=== PATIENT | female | born 1985 | race Caucasian/White ===

== ENCOUNTER 2024-09-29 09:40 | Emergency (ER) | payer OTHER, SELFPAY ==
[2024-09-29 09:41] VITALS: BMI 24.2
--- NOTE | 2024-09-29 09:44 | EKG_ITS ---
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
[2024-09-29 10:09] VITALS: BP 114/68; PULSE 88; RESP 18; TEMP 36.9; O2SAT 99
--- NOTE | 2024-09-29 10:22 | XR_ITS ---
Examination: Venous duplex lower extremity sonogram, bilateral. Date and time of exam: September 29, 2024 1139 hours INDICATIONS: Bilateral leg swelling beginning one week ago Technique: Multiple sonographic images of the deep venous system have been obtained. B-mode/2-D grayscale imaging of vascular structures and Doppler spectral analysis (waveforms) and color performed Both legs are examined. Findings: Deep venous systems do not demonstrate abnormal echogenicity. All visualized deep veins exhibit compressibility. All visualized deep veins exhibit augmentation. Impression: Negative for deep vein thrombosis
--- NOTE | 2024-09-29 10:23 | XR_ITS ---
Examination: PA lateral chest 2 views TECHNIQUE: Upright PA lateral chest 2 views Date and time: September 29, 2024 10:20 AM Comparison November 17, 2016 INDICATIONS: Chest pain shortness of breath today. FINDINGS: Normal heart size Pectus excavatum deformity. No pneumonia or pulmonary edema IMPRESSION: No active disease.
[2024-09-29] MEDS: ASPIRIN EC 81 MG TABEC PO (10:36)
[2024-09-29 11:09] LABS: Basophils # (Auto) 0.1 Thou/mm3 (0.0-0.2); Basophils % (Auto) 1 % (0-2.5); Eosinophils # (Auto) 0.0 Thou/mm3 (0.0-0.5); Eosinophils % (Auto) 0 % (0-10); Hematocrit 40.3 % (36.0-46.0); Hemoglobin 13.4 g/dL (12.0-16.0); Immature Granulocytes Auto 0.03 Thou/mm3 (0.00-0.00); Lymphocytes # (Auto) 1.2 Thou/mm3 (1.0-4.8); Lymphocytes % (Auto) 13 % (10-50); Mean Corpuscular HGB Conc 33.3 g/dl (31.0-37.0); Mean Corpuscular Hemoglobin 29.7 pg (25.0-35.0); Mean Corpuscular Volume 89 fL (80-100); Monocytes # (Auto) 0.5 Thou/mm3 (0.0-0.8); Monocytes % (Auto) 6 % (0-12); Neutrophils # (Auto) 7.7 Thou/mm3 (1.8-7.7); Neutrophils % (Auto) 81 % (37-80); Nucleated Red Blood Cell # 0.00 Thou/mm3 (0.00-0.00); Nucleated Red Blood Cell % 0 /100 WBC (0); Platelet Count 280 Thou/mm3 (140-440); RDW Standard Deviation 44.4 fL (36.4-46.3); Red Blood Count 4.51 Miln/mm3 (4.00-5.20); White Blood Count 9.6 Thou/mm3 (3.6-11.0)
[2024-09-29 11:28] LABS: D-Dimer < 250 ng/mL (<600)
[2024-09-29 11:36] LABS: Alanine Aminotransferase 15 U/L (10-49); Albumin, Serum 4.5 gm/dL (3.5-5.0); Albumin/Globulin Ratio 2.0 (1.2-2.2); Alkaline Phosphatase 32 U/L (46-116); Anion Gap 9 (7-16); Aspartate Amino Transferase 23 U/L (0-34); BUN/Creatinine Ratio 16 Ratio (12-20); Bilirubin,Total 0.4 mg/dL (0.3-1.2); Blood Urea Nitrogen 13 mg/dL (9-23); Calcium 9.9 mg/dL (8.3-10.6); Calcium (Corrected) 9.9 mg/dL (8.5-10.1); Carbon Dioxide 26.1 mMol/L (20.0-31.0); Chloride 105 mMol/L (98-107); Creatinine (Component) 0.8 mg/dL (0.6-1.3); Estimated Creatinine Clearance 89.3 mL/min (>60); Globulin 2.3 gm/dL (2.3-3.5); Glucose 90 mg/dL (74-106); Lipase 40 U/L (12-53); Osmolality,Calculated 279 (275-295); Potassium 4.6 mMol/L (3.4-5.1); Sodium 140 mMol/L (136-145); Total Protein 6.8 gm/dL (5.7-8.2); Troponin I < 0.002 ng/mL (0.0-0.045); eGFR > 60 See Note
[2024-09-29 11:41] LABS: HCG,Qualitative Serum Negative
--- NOTE | 2024-09-29 12:39 | PD.EDRME ---
Rapid Medical Screening Exam RME Arrival date/time: 09/29/24 09:40 Chief Complaint: Chest Pain Time Seen by Provider: 09/29/24 10:02 Vital signs: Vital Signs Temperature 98.4 F 09/29/24 10:09 Pulse Rate 88 09/29/24 10:09 Respiratory Rate 18 09/29/24 10:09 Blood Pressure 114/68 09/29/24 10:09 Pulse Oximetry (%) 99 09/29/24 10:09 Oxygen Delivery Method Room Air 09/29/24 10:09 RME Narrative: Patient is a 39-year-old female with medical history notable for factor V Leiden deficiency that is in the Emergency Department after having acute onset chest pain as well as bilateral lower extremity swelling. Patient does not take any hormonal medication, does not smoke no recent travel, no hemoptysis no hematemesis.
[2024-09-29 12:55] VITALS: BP 136/77; PULSE 88; RESP 18; TEMP 36.6; O2SAT 99
--- NOTE | 2024-09-29 13:00 | PD.EDCHEST ---
ED Chest Pain RME/HPI General Chief Complaint: Chest Pain Stated Complaint: CHEST PAIN TODAY, HX FACTOR 5 LADEN Time Seen by Provider: 09/29/24 10:02 Source: patient Arrival date/time: 09/29/24 09:40 Limitations: no limitations RME / HPI RME / HPI narrative: Patient is a 39-year-old female with medical history notable for factor V Leiden deficiency that is in the Emergency Department after having acute onset chest pain as well as bilateral lower extremity swelling. Patient does not take any hormonal medication, does not smoke no recent travel, no hemoptysis no hematemesis. Patient states her pain started about a week ago. She denies any fevers or chills. Has abdominal pain, nausea, vomiting. No history of thrombus. Related Data Home Medications ?Medication ?Instructions ?Recorded ?Confirmed sertraline 25 mg tablet (Zoloft) 25 mg PO QDAY #0 tabs 04/12/13 Previous Rx's ?Medication ?Instructions ?Recorded tramadol 50 mg tablet (Ultram) 1 tab PO Q4-6H #30 tabs 04/13/13 Allergies Allergy/AdvReac Type Severity Reaction Status Date / Time No Known Allergies Allergy Verified 09/29/24 09:43 Review of Systems Review of Systems Systems Reviewed: All systems reviewed, normal except as documented ED Exam General Limitations: Present no limitations General appearance: Present alert and in no apparent distress Head Head exam: Present atraumatic Eye Eye exam: Present normal appearance, PERRL and EOMI ENT ENT exam: Present normal exam, normal oropharynx and mucous membranes moist Neck Neck exam: Present normal inspection, full ROM and trachea midline Chest Chest inspection: Present normal inspection and symmetric chest wall rise Respiratory Respiratory exam: Present normal lung sounds bilaterally Cardiovascular Cardiovascular exam: Present regular rate, normal rhythm and normal heart sounds Abdominal Exam Abdominal exam: Present soft; Absent distention Extremities Exam Extremities exam: Present normal inspection and other (Bilateral nonpitting edema) Back Exam Back exam: Present normal inspection Neurological Exam Neurological exam: Present alert and oriented X3 Psychiatric Psychiatric exam: Present normal affect and normal mood Skin Skin exam: Present warm, dry, intact and normal color Course Quality Measures none Orders Category Date Time Status EKG (ED ONLY) *Do not use* NOW Care 09/29/24 09:44 Completed CXR2 [XR chest 2V] Stat Exams 09/29/24 10:23 Completed EKG (ED Only) Stat Exams 09/29/24 09:44 Draft US venous doppler LE BI Stat Exams 09/29/24 10:22 Completed CBC Stat Lab 09/29/24 10:43 Completed CMP [Comprehensive Metabolic Panel] Stat Lab 09/29/24 10:43 Completed D-Dimer Stat Lab 09/29/24 10:43 Completed HCG,Qualitative Serum Stat Lab 09/29/24 10:43 Completed Lipase Stat Lab 09/29/24 10:43 Completed Troponin I Stat Lab 09/29/24 10:43 Completed Aspirin [Ecotrin] Med 09/29/24 10:23 Discontinued 81 mg PO X1 ONE Vital Signs Vital signs: Vital Signs Temperature 98.4 F 09/29/24 10:09 Pulse Rate 88 09/29/24 10:09 Respiratory Rate 18 09/29/24 10:09 Blood Pressure 114/68 09/29/24 10:09 Pulse Oximetry (%) 99 09/29/24 10:09 Oxygen Delivery Method Room Air 09/29/24 10:09 Chest Pain MDM Narrative MDM Narrative:: Patient is a 39-year-old female with medical history notable for factor V Leiden deficiency that is in the Emergency Department after having acute onset chest pain as well as bilateral lower extremity swelling. Patient does not take any hormonal medication, does not smoke no recent travel, no hemoptysis no hematemesis. Patient states her pain started about a week ago. She denies any fevers or chills. Has abdominal pain, nausea, vomiting. No history of thrombus. On exam, patient is nontoxic. No visible sign stress. Vital signs are stable. Work appears essentially unremarkable. I do believe the patient be discharged for outpatient follow-up. All of her test results were discussed in detail. Return precautions were discussed. Patient agrees return as needed for any worsening emergent changes. Patient data External records reviewed:: None Clinical information provided by:: patient Social determinants that could affect healthcare access:: none Patient has the following chronic illnesses:: n/a How is presenting disease/condition affected by chronic disease/condition?: no chronic disease Evaluation data The following diagnostics were reviewed and interpreted by me:: lab results and radiology exam(s) Lab and/or radiology exams considered but not ordered:: n/a Interpretation Summary: Unremarkable workup Medications / Prescriptions Medications or Prescriptions considered but not ordered:: n/a Medication administrations:: Medication Administration History Discontinued Medications Aspirin (Aspirin Ec 81 Mg Tabec) 81 mg PO X1 ONE Stop: 09/29/24 10:24 Last Admin: 09/29/24 10:36 Dose: 81 mg Documented By: See above Consultations Consultation(s) initiated? (list below): No Diagnosis Chest Pain Differential Diagnosis: atypical chest pain, st elevation myocardial infarction, costochondritis and chest pain Most likely diagnosis given after review of the tests above:: Noncardiac chest pain Admission Indicated Admission indicated?: not indicated Admission Request Was there a request for admission?: No Disposition Plan Disposition Plan: Discharge Discharge Attestation Discharge Attestation: The patient and all family members were given an opportunity to ask questions and understood the discharge instructions. Discharge instructions specifically effects, indications for sooner follow up or return to the emergency department, and the expected course of current diagnosis. Patient condition: Stable Discharge Plan Plan Patient Disposition: HOME (Self Care) Patient condition on transfer: Stable Prescriptions/Referrals Prescriptions/Med Rec: No Action sertraline [Zoloft] 25 MG tablet 25 mg PO QDAY Qty: 0 tramadol [Ultram] 50 MG tablet 1 tab PO Q4-6H Qty: 30 0RF Referrals: Mary Kate Sung MD [Primary Care Provider] - In 1 week Problem List Clinical Impression: Chest pain Patient/Caregiver Discharge Instructions Education Materials: ED Chest Pain, Noncardiac Additional Instructions: - Your workup today was unremarkable for any CT or thrombus. - Please contact your primary doctor to schedule close follow-up appointment. -Please return here at anytime for any worsening or emergent changes Print Language: Bur[place]ian Stand Alone Forms: Germaine Award Info., Patient Portal Info Letter
== END 2024-09-29 13:30 | disposition home or self-care (01) ==
PROVIDERS: Emergency Provider Emergency Medicine; PCP Internal Medicine
DX: R07.9 Chest pain, unspecified (principal); R60.0 Localized edema; D68.51 Activated protein C resistance
CPT/HCPCS: 36415; 71046; 80053; 83690; 84484; 84703; 85025; 85379; 93005; 93970; 99283; A9270